=== PATIENT | male | born 1960 | race African-American/Black ===

== ENCOUNTER → 2016-07-31 | Outpatient (CLI) | payer BC ==
[~2016-07-31] MED LIST: ATORVASTATIN CA10 MG PO; CELEXA 20 MG TA20 MG PO; HYTRIN 2MG CAPSU2 M1 PO; LISINOPRIL10 MG PO; MELOXICAM15 MG PO; METFORMIN 500500 MG PO; NORCO 5-325 TA1 EACH PO; OXYCODONE; PAXIL10 MG; PROSCAR 5MG TABL5 M1 PO; PROVENTIL HFA6.7 G1 INH; TAMSULOSIN HCL0.4 M1 PO; TESSALON200 MG PO; ZESTORETIC 20-1 EAC3 PO; ZPAK PO
== END ==
LOC: CAT 12:58
DX: K57.90 Diverticulosis of intestine, part unspecified, without perforation or abscess without bleeding (principal); R10.9 Unspecified abdominal pain

== ENCOUNTER → 2016-08-05 | Outpatient (CLI) | payer BC ==
--- NOTE | ~2016-08-05 | 24HR ---
[facility] [place] [address] 24 HR ELECTROCARDIOGRAM REPORT Name: MITUL LARA Room #: REG [facility]#: [id number] Admission: 08/05/16 Attend Phys: Shiraz Vergara Discharge: Date of : 58 Date of Service: 08/05/16 1051 Report #: [id number] THIS REPORT FOR: //name// [facility] Test Date: 2016-08-05 Test Time: 10:51:00 Pat Name: MITUL LARA Department: Room: Gender: Instrumentation Tech: : 1960 Requested By: Shiraz Murrieta Order Number: [id number] Reading MD: Sonny Navarro Interpretive Statements Average HR 68 BPM The patient had PVCs noted, with a low burden of 1.6%. No symptoms noted. There were rare PACs < 1.%. There was no Afib, atrial flutter or SVT There was no signficant bradycardia other than during sleeping hours which in normal physiology. Electronically Signed On 08-06-2016 15:24:24 [employer] ATTEND[employer] by Sonny Navarro [email or web address] <ELECTRONICALLY SIGNED> By: Sonny Navarro MD 08/06/16 1524 1051 1051 Sonny Navarro MD /EPI
== END ==
LOC: CV 10:02 → EDSTATUS 08-08 13:17
DX: R00.2 Palpitations (principal)

== ENCOUNTER 2017-01-05 18:53 | Emergency (ER) | payer BC ==
[~2017-01-05] VITALS: Ht 182.9 cm; Wt 124.3 kg
[2017-01-05] MEDS ORDERED: FLONASE 0.05%50 MCG NASAL (19:24)
[2017-01-05] MEDS ORDERED: PREDNISONE 10 M10 MG PO (19:24)
[2017-01-05 21:32] LABS: ABSOLUTE NEUTROPHILS 4.4 thou/uL (1.4-8.2); EOSINOPHILS 0.5 % (0.0-3.0); HEMATOCRIT 41.9 % (42.0-52.0); LYMPHOCYTES 44.8 % (24.0-44.0); MCH 29.8 pg (26.0-34.0); MCHC 33.4 g/dL (28.0-37.0); MCV 89.3 fL (80.0-100.0); MONOCYTES 7.7 % (1.0-8.0); PLATELET COUNT 218 thou/uL (150-400); RBC 4.69 mil/uL (4.50-6.00); RDW 13.5 % (10.5-14.5); WBC 9.5 thou/uL (4.0-11.0)
[2017-01-05 21:39] LABS: MANUAL DIFF NO
[2017-01-05 21:49] LABS: CALCIUM 8.5 mg/dL (8.5-10.1); CREATININE 0.9 mg/dL (0.7-1.3)
[2017-01-05 21:53] LABS: ALBUMIN 3.6 g/dL (3.4-5.0); TOTAL BILIRUBIN 0.3 mg/dL (<0.1-1.0); TOTAL PROTEIN 7.2 g/dL (6.4-8.2)
[2017-01-05] MEDS ORDERED: IBUPROFEN 600600 M1 PO (22:59)
[2017-01-05] MEDS ORDERED: NORCO 5-325 TA1 EACH PO (23:00)
== END 2017-01-05 23:23 | disposition home or self-care (01) ==
LOC: ER 18:53
PROVIDERS: Physician Assistant
DX: M16.11 Unilateral primary osteoarthritis, right hip (principal); F10.99 Alcohol use, unspecified with unspecified alcohol-induced disorder

== ENCOUNTER 2018-04-16 14:14 | Emergency (ER) | payer BC ==
[~2018-04-16] VITALS: Ht 182.9 cm; Wt 120.2 kg
[~2018-04-16 14:14] MED LIST changes: +FLONASE 0.05%50 MCG NASAL; +IBUPROFEN 600600 M1 PO; +LISINOPRIL20 MG PO; +MS CONTIN15 MG PO; +NEURONTIN 300300 M1 PO; +PERCOCET PO; +PREDNISONE 10 M10 MG PO; +SINGULAIR 10 MG10 M1 PO; +SULINDAC 150 M150 MG PO; +TRAMADOL 50 MG50 MG PO; +TRI-BUFFERED A325 M1 PO
[2018-04-16 15:31] LABS: BASOPHILS 0.4 % (0.0-2.0); EOSINOPHILS 0.7 % (0.0-3.0); HEMATOCRIT 34.3 % (42.0-52.0); HEMOGLOBIN 11.3 gm/dL (14.0-18.0); LYMPHOCYTES 35.2 % (24.0-44.0); MCH 29.2 pg (26.0-34.0); MCHC 33.1 g/dL (28.0-37.0); MCV 88.4 fL (80.0-100.0); PLATELET COUNT 250 thou/uL (150-400); POLYS 56.7 % (36.0-66.0); RBC 3.88 mil/uL (4.50-6.00); RDW 14.1 % (10.5-14.5); WBC 5.2 thou/uL (4.0-11.0)
[2018-04-16 15:53] LABS: CALCIUM 9.5 mg/dL (8.5-10.1); CREATININE 1.1 mg/dL (0.7-1.3); POTASSIUM 3.4 mmol/L (3.5-5.1)
[2018-04-16] MEDS ORDERED: LIORESAL 10 MG10 MG PO (16:09)
[2018-04-16] MEDS ORDERED: NORCO 5-325 TA1 EACH PO (16:09)
== END 2018-04-16 16:43 | disposition home or self-care (01) ==
LOC: ER 14:14
PROVIDERS: Physician Assistant
DX: M79.662 Pain in left lower leg (principal); R25.2 Cramp and spasm; I10 Essential (primary) hypertension; N40.0 Benign prostatic hyperplasia without lower urinary tract symptoms; Z96.641 Presence of right artificial hip joint